=== PATIENT | male | born 1990 ===

== ENCOUNTER 2022-01-20 12:25 | Emergency (ER) | payer OTHER ==
[~2022-01-20] VITALS: Ht 177.8 cm; Wt 158.8 kg
[2022-01-20] MEDS ORDERED: PENICILLIN V P500 MG PO (14:20)
== END 2022-01-20 15:13 | disposition home or self-care (01) ==
LOC: ED 12:25
DX: K04.7 Periapical abscess without sinus (principal); I10 Essential (primary) hypertension
CPT/HCPCS: 41800; 99283-25